=== PATIENT | female | born 1990 | race Caucasian/White ===

== ENCOUNTER 2016-11-11 07:52 | Day surgery (SDC) | payer OTHER ==
[2016-11-11] MEDS ORDERED: FENTANYL PF 250 MCG/5ML ONE (08:01)
[2016-11-11] MEDS ORDERED: MIDAZOLAM 1 MG/ML, 2ML ONE (08:02)
[2016-11-11] MEDS ORDERED: BUPIVACAINE/PF-EPI 0.25% 1:200K ONE (09:47)
[2016-11-11] MEDS ORDERED: LIDOCAINE 1%, 20ML ONE (10:19)
[2016-11-11] MEDS ORDERED: DEXAMETHASONE 4 MG/ML, 1ML ONE (10:19)
[2016-11-11] MEDS ORDERED: CEFAZOLIN 1,000 MG ONE (10:19)
[2016-11-11] MEDS ORDERED: SUCCINYLCHOLINE 20 MG/ML, 10ML ONE (10:19)
[2016-11-11] MEDS ORDERED: GLYCOPYRROLATE 0.2MG/1ML ONE (10:19)
[2016-11-11] MEDS ORDERED: PROPOFOL 10 MG/ML, 50ML ONE (10:19)
[2016-11-11] MEDS ORDERED: KETOROLAC 30 MG/1 ML ONE (10:19)
[2016-11-11] MEDS ORDERED: LABETALOL 5MG/ML, 20ML IV PRN (10:30)
[2016-11-11] MEDS ORDERED: MIDAZOLAM 1 MG/ML, 2ML IV PRN (10:30)
[2016-11-11] MEDS ORDERED: FENTANYL PF 100 MCG/2ML IV PRN (10:30)
[2016-11-11] MEDS ORDERED: HYDROmorphone 1 MG/ML, 1ML IV PRN (10:30)
[2016-11-11] MEDS ORDERED: METOPROLOL 1 MG/ML, 5ML IV PRN (10:30)
[2016-11-11] MEDS ORDERED: hydrALAzine 20 MG/ML, 1ML IV PRN (10:30)
[2016-11-11] MEDS ORDERED: METOCLOPRAMIDE 5 MG/ML, 2ML IV PRN (10:30)
[2016-11-11] MEDS ORDERED: ACETAMINOPHEN 325 MG TABLET PO PRN (10:30)
[2016-11-11] MEDS ORDERED: ONDANSETRON 2MG/ML, 2ML IVPush PRN (10:30)
[2016-11-11] MEDS ORDERED: PROMETHAZINE 25 MG/ML, 1ML IV PRN (10:30)
[2016-11-11] MEDS ORDERED: MEPERIDINE/PF 25MG/0.5ML IVPush PRN (10:30)
[2016-11-11] MEDS ORDERED: EPHEDRINE 50 MG/ML, 1ML IVPush PRN (10:30)
[2016-11-11] MEDS ORDERED: OXYcodone 5 MG/5 ML ORAL.SOL UDC PO PRN (10:30)
[2016-11-11] MEDS ORDERED: SILVER NITRATE STICK TP ONE (11:08)
[2016-11-11] MEDS ORDERED: OXYcodone 5 MG/5 ML ORAL.SOL UDC ONE (11:37)
[2016-11-11 13:25] VITALS: BP 108/72
[2016-11-11] MEDS ORDERED: PLEASE ENTER HEIGHT AND WEIGHT MC SCH (14:00)
[2016-11-11] MEDS ORDERED: DOCU-30 PO (15:24)
[2016-11-11] MEDS ORDERED: IBUP-1222 PO (15:24)
[2016-11-11] MEDS ORDERED: OXYC-302 PO (15:24)
== END 2016-11-11 16:00 | disposition home or self-care (01) ==
LOC: OR 07:52 → 4NOR 08:20 → OR 16:00
PROVIDERS: ATTEND Obstetrics & Gynecology
DX: Z30.2 Encounter for sterilization (principal); S37.63XA Laceration of uterus, initial encounter; X58.XXXA Exposure to other specified factors, initial encounter; Y93.9 Activity, unspecified; Y92.9 Unspecified place or not applicable; Y99.9 Unspecified external cause status
CPT/HCPCS: 36415; 57720; 58661; 85025; 86850; 86900; 88302; J0330; J0690; J1100; J1885; J2250; J2704; J3010; J3490

== ENCOUNTER 2018-02-12 14:31 | Emergency (ER) | payer OTHER ==
[~2018-02-12 14:31] MED LIST: DOCU-131 PO; IBUP-1222 PO; OXYC-302 PO
[2018-02-12 14:35] VITALS: BP 119/80
[2018-02-12] MEDS ORDERED: methylPREDNISolone SOD SUCC 125 MG/2 ML IVPush ONE (14:38)
[2018-02-12] MEDS ORDERED: SODIUM CHLORIDE FLUSH 10ML SYR IVF ONE (15:00)
[2018-02-12 15:05] LABS: BASOPHILS # (AUTO) 0.04 x10^3/uL (0-0.1); BASOPHILS % (AUTO) 1 % (0-1); EOSINOPHILS # (AUTO) 0.25 x10^3/uL (0-0.4); EOSINOPHILS % (AUTO) 3 % (1-7); LYMPHOCYTES # (AUTO) 2.12 x10^3/uL (1-3.4); LYMPHOCYTES % (AUTO) 24 % (22-44); MD NO; MEAN CORPUSCULAR HEMOGLOBIN 28.4 pg (27.0-34.8); MEAN CORPUSCULAR HGB CONC 33.7 g/dL (32.4-35.8); MEAN CORPUSCULAR VOLUME 84.4 fL (80-100); MEAN PLATELET VOLUME 7.7 fL (7.4-10.4); MONOCYTES % (AUTO) 7 % (2-9); NEUTROPHILS # (AUTO) 6.04 x10^3/uL (1.8-6.8); NEUTROPHILS % (AUTO) 67 % (42-75); PLATELET COUNT 283 x10^3/uL (130-400); RED BLOOD COUNT 5.01 x10^6/uL (3.82-5.3); RED CELL DISTRIBUTION WIDTH 14.3 % (9.6-15.2)
[2018-02-12 15:15] LABS: ALBUMIN 4.2 g/dL (3.4-5.0); ANION GAP 5 mmol/L (5-15); CALCIUM 8.8 mg/dL (8.5-10.1); CHLORIDE 106 mmol/L (98-107); CREATININE 0.61 mg/dL (0.55-1.02)
[2018-02-12] MEDS ORDERED: DEXAMETHASONE 4 MG TABLET PO STA (16:27)
[2018-02-12] MEDS ORDERED: DEXAMETHASONE 4 MG TABLET ONE (16:36)
== END 2018-02-12 17:12 | disposition home or self-care (01) ==
LOC: ED 16:05
DX: J02.0 Streptococcal pharyngitis (principal)
CPT/HCPCS: 36415; 80048; 82040; 85025; 99284